=== PATIENT | female | born 1995 | race Caucasian/White ===

== ENCOUNTER 2019-04-01 14:31 | Outpatient (REF) | payer MEDICAID, SELFPAY ==
[2019-04-01 19:39] LABS: Mean Corp. HGB Concentration 33.3 g/dL (32.0-36.0); Mean Corpuscular Hemoglobin 30.8 pg (27.0-33.0); Mean Corpuscular Volume 92.5 fL (80-95); Mean Platelet Volume 10.6 fL (8.0-11.0); Platelet Count 339 x1000/uL (130-400); RBC 5.19 m/cumm (4.00-5.20); RBC Distribution Width 12.5 % (11.7-14.6); White Blood Cell Count 10.98 k/cumm (4.4-10.8)
[2019-04-01 19:56] LABS: ALT 20 U/L (14-59); AST 17 U/L (15-37); Albumin 3.9 g/dL (3.4-5.0); Alkaline Phosphatase 85 U/L (46-116); Anion Gap 10.3 mmol/L (3-11); BUN 13 mg/dL (7-18); Bilirubin, Total 1.7 mg/dL (0.2-1.0); CO2 27.7 mmol/L (21.0-32.0); CREATININE 0.77 mg/dL (0.55-1.02); Calcium 9.2 mg/dL (8.5-10.1); Chloride 101 mmol/L (98-107); Glucose 221 mg/dL (74-106); Potassium 4.2 mmol/L (3.5-5.1); Sodium 139 mmol/L (136-145); Total Protein 7.5 g/dL (6.4-8.2)
[2019-04-01 20:06] LABS: Hemoglobin A1C 6.2 % (4.5-6.2)
[2019-04-05 11:32] LABS: Hepatitis C Ab w Rflx HCV PCR Negative (Negative)
[2019-04-05 11:56] LABS: HBs Antibody, Quant 10.8 mIU/mL (See Note); Hepatitis B Surface Ab Positive (See Note); Hepatitis B Surface Ag Negative (Negative)
[2019-04-05 12:02] LABS: Syphilis Serology (RPR) Negative (Negative)
[2019-04-05 12:53] LABS: HIV-1/2 Ag & Ab Screen Negative (Negative)
[2019-04-05 14:24] LABS: Chlamydia Result Negative (Negative); GC Result Negative (Negative)
== END 2019-04-01 14:51 ==
LOC: NCHCN 14:31
PROVIDERS: PCP Nurse Practitioner Family; Visit Provider Nurse Practitioner Family
DX: Z11.59 Encounter for screening for other viral diseases (principal); Z11.4 Encounter for screening for human immunodeficiency virus [HIV]; Z11.3 Encounter for screening for infections with a predominantly sexual mode of transmission; Z13.1 Encounter for screening for diabetes mellitus; Z13.0 Encounter for screening for diseases of the blood and blood-forming organs and certain disorders involving the immune mechanism; Z00.00 Encounter for general adult medical examination without abnormal findings
CPT/HCPCS: 80053; 85027; 86706; 86803; 87340; 87389; 87491; 87591; 83036; 86592; 87177; 87480; 87510; 87660

== ENCOUNTER 2019-04-06 10:20 | Outpatient (REF) | payer MEDICAID, SELFPAY | END 2019-04-06 10:40 | LOC: NCHCN 10:20 | PROVIDERS: PCP Nurse Practitioner Family; Visit Provider Nurse Practitioner Family | DX: L29.0 Pruritus ani (principal) | CPT/HCPCS: 87177 ==

== ENCOUNTER 2021-11-01 12:22 | Emergency (ER) | payer MEDICAID, SELFPAY ==
[2021-11-01 12:27] VITALS: BP 107/64; PULSE 92; RESP 16; TEMP 36.9; O2SAT 99
--- NOTE | 2021-11-01 13:02 | ED.GENADUL_ITS ---
Discharge Plan Disposition Patient Disposition: HOME Condition: Stable Discharge Details Clinical Impression: ADHD Primary Care Provider: Brian Isidro ED Provider: Nain Alexander Home Meds and New Rx's Prescriptions: New methylphenidate HCl [Ritalin] 10 mg tablet 10 mg PO BID Qty: 30 0RF Continued insulin aspart U-100 [Novolog PenFill U-100 Insulin] 100 UNIT/1 ML cartridge 40 unit subcut DAILY Label Comments[place] [facility] [place] Instructions: varying depending on food intake (DME) blood sugar diagnostic [OneTouch Ultra Test] 1 EACH strip 1 ea Miscellaneous PRN Qty: 100 methylphenidate HCl [Ritalin] 10 mg Tablet 10 mg PO 2XD Tresiba U-100 Insulin 100 unit/mL Solution 60 unit SUBCUT DAILY Discharge Instructions Instructions: ADHD in Adults (ED) Additional Instructions: follow up with your primary care provider or psychiatrist when you return home Medical Decision Making 26 yo female with hx of adhd comes in with complaint that she ran out of her ritalin. She grew up in this area but now lives in [place] where she was prescribed ritalin. She takes 20mg daily and ran out this morning because her trip here has lasted longer than she expected. She has no acute complaints. she has no si/hi and is caox4 with clear speech, no evidence of anxiety or depression or psychosis on exam. She has a valid prescription of the ritalin and documentation from her provider in [facility]. She says she is here for 2 more weeks, will provide 30 tablets of 10mg to help her until she can return home. Differential Diagnosis Differential Diagnosis: adhd HPI General Mode of arrival: ambulatory . Date/Time Provider Initiated Documentation: 11/01/21 12:24 . Limitations to Documentation: no limitations . Information obtained by: patient . History of Present Illness 26 year old F presents to the emergency department with the chief complaint of ran out of ritalin, Patient started experiencing this day(s) (1) and it has been constant. No relieving factors improve symptom(s), No exacerbating factors reported . Patient notes no other symptoms.. Related Data Home Medications Medication Instructions Recorded Confirmed insulin aspart U-100 100 unit/mL 40 unit subcut DAILY 05/19/13 11/01/21 subcutaneous cartridge (Novolog PenFill U-100 Insulin aspart) blood sugar diagnostic (OneTouch #100 strips 02/28/15 Ultra Test strips) insulin degludec 100 unit/mL 60 unit subcut DAILY 11/01/21 11/01/21 subcutaneous solution (Tresiba U-100 Insulin) methylphenidate HCl 10 mg tablet 10 mg PO 2XD 11/01/21 11/01/21 (Ritalin) methylphenidate HCl 10 mg tablet 10 mg PO BID #30 tabs 11/01/21 (Ritalin) Previous Rx's Medication Instructions Recorded methylphenidate HCl 10 mg tablet 10 mg PO BID #30 tabs 11/01/21 (Ritalin) Allergies Allergy/AdvReac Type Severity Reaction Status Date / Time gluten Allergy Unverified 11/01/21 12:34 ibuprofen [From Motrin] Allergy Unverified 11/01/21 12:34 General Stated Complaint: GenMedical JOANA: 5 Review of Systems All systems reviewed & are unremarkable except as noted in HPI and below Constitutional Constitutional: Denies chills, Denies fever(s) and Denies weakness Eyes Eyes: Denies loss of vision ENT Ears, Nose, Mouth, and Throat: Denies change in voice Cardiovascular Cardiovascular: Denies chest pain and Denies dyspnea Respiratory Respiratory: Denies cough and Denies dyspnea Gastrointestinal Gastrointestinal: Denies abdominal pain, Denies nausea and Denies vomiting Musculoskeletal Musculoskeletal: Denies joint swelling Integumentary/Breasts Skin/Breast: Denies rash Neurologic Neurologic: Denies loss of vision and Denies weakness Psychiatric Psychiatric: Denies depression PFSH All Active Problems (Updated 11/01/21 @ 13:02 by Nain Alexander MD) ADHD (Acute) Social History Smoking/Tobacco Use Status: Never Smoking risk assessment performed?: Yes Drug use: Occasionally Substance use type: marijuana Do you feel safe at home: Yes Do you feel safe in your relationship?: Yes Exam Const General: no acute distress Orientation: alert HENMT Head: normal to inspection Ears: external ears normal General nose exam: external nose normal Mouth: moist mucous membranes Eyes General: appearance normal, both eyes and all related structures Neck Neck: normal visual inspection Resp Effort & Inspection: normal respiratory effort and able to speak in complete sentences Cardio Rate: regular rate Skin General skin exam: no rashes or lesions noted Neuro General: patient alert and patient oriented x3 Extrem General: normal to inspection Psych Mental Status: mental status grossly normal Course Vital Signs Vital signs: Vital Signs Temperature 36.9 C 11/01/21 12:27 Pulse 92 H 11/01/21 12:27 Respiratory Rate 16 11/01/21 12:27 Blood Pressure 107/64 11/01/21 12:27 Pulse Oximetry 99 11/01/21 12:27 Temperature 36.9 C 11/01/21 12:27 Pulse 92 H 11/01/21 12:27 Respiratory Rate 16 11/01/21 12:27 Respiratory Effort 11/01/21 12:36 Blood Pressure 107/64 11/01/21 12:27 Pulse Oximetry 99 11/01/21 12:27
[2021-11-01 13:15] VITALS: RESP 18
== END 2021-11-01 13:15 | disposition home or self-care (01) ==
PROVIDERS: Emergency Provider Emergency Medicine; PCP Nurse Practitioner Family
DX: F90.9 Attention-deficit hyperactivity disorder, unspecified type (principal)
CPT/HCPCS: 99283; 99284

== ENCOUNTER 2021-11-15 15:23 | Outpatient (REF) | payer MEDICAID, SELFPAY ==
--- NOTE | 2021-11-15 10:45 | PAPFT_PTH ---
PATIENT: Cordell Berrios LOC: NCN #:[id number] AGE/SX: 26/F ROOM: RE11/15/[address]: Deena Pickens : 1995 BED: DIS: 11/15/2021 SPEC #: [id number] RECD: 11/15/21 15:36 STATUS: ELIAN REBhupinder #: [id number] BRITTA: 11/15/21 10:[address]: Brian Isidro DEPT: [facility] Cytology RECD BY: Virginia Ortiz Tissues: 1 - CX/ENDOCX FOR PAP SMEARS Procedures: PAP THIN PREP/[facility] Screening Comments: [id number]
[2021-11-16 15:22] LABS: Chlamydia Result Negative (Negative); GC Result Negative (Negative)
== END 2021-11-15 15:24 | disposition home or self-care (01) ==
LOC: NCHCN 15:23
PROVIDERS: PCP Nurse Practitioner Family; Visit Provider Nurse Practitioner Family
DX: Z12.4 Encounter for screening for malignant neoplasm of cervix (principal); Z11.3 Encounter for screening for infections with a predominantly sexual mode of transmission; L29.8 Other pruritus
CPT/HCPCS: 87491; 87591; 88142